=== PATIENT | male | born 1980 | race Caucasian/White ===

== ENCOUNTER 2025-02-06 20:09 | Inpatient (IN) | payer BC ==
--- NOTE | 2025-02-06 20:41 | ED ---
GI Bleed HPI - General Chief complaint: GI Bleed Stated complaint: GI Bleed Time Seen by Provider: 02/06/25 20:23 Source: patient, RN notes reviewed Mode of arrival: EMS Limitations: no limitations - History of Present Illness Initial comments: This is a 45-year-old male with history including hypertension and peptic ulcer hemorrhage 6 years ago presenting via EMS from [facility] for gastrointestinal bleeding x 4 days. Patient states he began having black tarry stool on Thursday that persisted throughout the weekend, stating stool was be ginning to return to normal before experiencing nausea and vomiting today, on his way to work, with brown/bloody emesis and subsequent dizziness, prompting visit to ER. Patient endorses receiving IV normal saline, Protonix and 1 unit of packed red blood cells prior to transfer to [facility] due to unavailability of property worker at initial ER location. Patient states he otherwise feels fine while lying in bed, denying chest pain, dyspnea, abdominal pain, current nausea. MD complaint: coffee ground emesis, melena Onset/Timin -: days(s) Quality: painless Context: history of GI bleed Associated Symptoms: nausea, vomiting Treatments Prior to Arrival: none - Related Data Allergies Allergy/AdvReac Type Severity Reaction Status Date / Time No Known Allergies Allergy Verified 02/06/25 20:15 Review of Systems ROS Statement: Those systems with pertinent positive or pertinent negative responses have been documented in the HPI. ROS Other: All systems not noted in ROS Statement are negative. Past Medical History Past Medical History: Hypertension Additional Past Medical History / Comment(s): bleeding stomach ulcer-7years ago Past Surgical History: Appendectomy, Orthopedic Surgery Smoking Status: Current every day smoker Past Alcohol Use History: Daily Past Drug Use History: None Reported General Exam General appearance: alert, in no apparent distress Head exam: Present: atraumatic, normocephalic, normal inspection Eye exam: Present: normal appearance, PERRL, EOMI. Absent: scleral icterus, conjunctival injection, periorbital swelling ENT exam: Present: normal exam, mucous membranes moist Neck exam: Present: normal inspection. Absent: tenderness, meningismus, lymphadenopathy Respiratory exam: Present: normal lung sounds bilaterally. Absent: respiratory distress, wheezes, rales, rhonchi, stridor, accessory muscle use, decreased breath sounds, prolonged expiratory Cardiovascular Exam: Present: regular rate, normal rhythm, normal heart sounds. Absent: systolic murmur, diastolic murmur, rubs, gallop, clicks GI/Abdominal exam: Present: soft, normal bowel sounds. Absent: distended, tenderness, guarding, rebound, rigid Extremities exam: Present: normal inspection, full ROM, normal capillary refill. Absent: tenderness, pedal edema, joint swelling, calf tenderness Back exam: Present: normal inspection Neurological exam: Present: alert, oriented X3, CN II-XII intact Psychiatric exam: Present: normal affect, normal mood Skin exam: Present: warm, dry, intact, normal color. Absent: rash Course Vital Signs 02/06/25 02/06/25 02/06/25 20:11 21:15 22:15 Temperature 98.4 F Pulse Rate 105 H 86 91 Respiratory 18 18 18 Rate Blood Pressure 99/73 107/68 101/73 O2 Sat by Pulse 97 98 98 Oximetry 02/07/25 02/07/25 02/07/25 01:16 01:26 01:46 Temperature 98.3 F 98.4 F 98.5 F Pulse Rate 93 86 89 Respiratory 16 18 18 Rate Blood Pressure 110/72 108/77 102/68 O2 Sat by Pulse 94 L 96 95 Oximetry Medical Decision Making - Medical Decision Making Was pt. sent in by a medical professional or institution (JUNIOR Andersen, STRATEGIC ACCOUNT DIRECTOR, urgent care, hospital, or shelter...) When possible be specific @ -Jerald Agarwal Did you speak to anyone other than the patient for history (EMS, parent, family, police, friend...)? What history was obtained from this source @ -No Did you review nursing and triage notes (agree or disagree)? Why? @ -I reviewed and agree with nursing and triage notes Were old charts reviewed (outside hosp., previous admission, EMS record, old EKG, old radiological studies, urgent care reports/EKG's, shelter records)? Report findings @ -No old charts were reviewed Differential Diagnosis (chest pain, altered mental status, abdominal pain women, abdominal pain men, vaginal bleeding, weakness, fever, dyspnea, syncope, headache, dizziness, GI bleed, back pain, seizure, CVA, palpatations, mental health, musculoskeletal)? @ -Differential GI Bleed: Esophageal varices, aortoenteric fistula, Faustina-Hanna, gastritis, peptic ulcer disease, diverticulosis, inflammatory bowel disease, hemorrhoids, fissure, colitis, malignancy, Meckel's diverticulum, this is not meant to be an all- inclusive list. EKG interpreted by me (3pts min.). @ -Not done X-rays interpreted by me (1pt min.). @ -None done CT interpreted by me (1pt min.). @ -None done U/S interpreted by me (1pt. min.). @ -None done What testing was considered but not performed or refused? (CT, X-rays, U/S, labs)? Why? @ -None What meds were considered but not given or refused? Why? @ -None Did you discuss the management of the patient with other professionals (professionals i.e. , PA, STRATEGIC ACCOUNT DIRECTOR, lab, RT, psych nurse, clinical social worker, rn anesthetist, teacher, medical officer psychiatry, counter caser)? Give summary @ -Spoke to Dr. Tang who advised admission and provide an additional unit of packed red blood cells. [facility] contacted for patient admission with consult to gastroenterology. Was smoking cessation discussed for >3mins.? @ -No Was critical care preformed (if so, how long)? @ -No Were there social determinants of health that impacted care today? How? (Homelessness, low income, unemployed, alcoholism, drug addiction, transportat ion, low edu. Level, literacy, decrease access to med. care, custodial, rehab)? @ -No Was there de-escalation of care discussed even if they declined (Discuss DNR or withdrawal of care, Hospice)? DNR status @ -No What co-morbidities impacted this encounter? (DM, HTN, Smoking, COPD, CAD, Cancer, CVA, ARF, Chemo, Hep., AIDS, mental health diagnosis, sleep apnea, morbid obesity)? @ -None Was patient admitted / discharged? Hospital course, mention meds given and route, prescriptions, significant lab abnormalities, going to OR and other pertinent info. @ -Lab work shows anemia with hemoglobin 7.0, hyponatremia 128, hyperkalemia 5.2 and BUN 42. Patient is O+ with negative antibody screen. Patient initially provided IV normal saline and IV Pepcid, having already received Protonix had prior ER. P.o. Lokelma given for hyperkalemia. Spoke to Dr. Ramesh who advised admission and provide additional units of packed red blood cells. Patient is a heavy smoker, requesting nicotine patch. Also states he takes 8 mg Suboxone daily and has not taken his dose today. Patient placed on maintenance IVF. [facility] contacted for patient admission with consult to gastroenterology. Patient would subsequently have a another bowel movement and commode with ongoing black tarry stool noted. Discussed patient with Dr. Acevedo. Undiagnosed new problem with uncertain prognosis? @ -No Drug Therapy requiring intensive monitoring for toxicity (Heparin, Nitro, Insulin, Cardizem)? @ -No Were any procedures done? @ -No Diagnosis/symptom? @ -Gastrointestinal hemorrhage Acute, or Chronic, or Acute on Chronic? @ -Acute Uncomplicated (without systemic symptoms) or Complicated (systemic symptoms)? @ -Complicated Side effects of treatment? @ -No Exacerbation, Progression, or Severe Exacerbation? @ -No Poses a threat to life or bodily function? How? (Chest pain, USA, NH, pneumonia, PE, COPD, DKA, ARF, appy, cholecystitis, CVA, Diverticulitis, Homicidal, Suicidal, threat to staff... and all critical care pts) @ -GI bleed, potential for exsanguination - Lab Data Result diagrams: 02/06/25 21:17 02/06/25 21:17 Lab Results 02/06/25 02/06/25 02/06/25 Range/Units 21:17 21:17 21:17 WBC 9.29 (4.50-10.00) 10*3/uL RBC 2.94 L (4.40-5.60) 10*6/uL Hgb 7.0 L (13.0-17.0) g/dL Hct 22.7 L (39.6-50.0) % MCV 77.2 L (80.0-97.0) fL MCH 23.8 L (27.0-32.0) pg MCHC 30.8 L (32.0-37.0) g/dL Plt Count 313 (140-440) 10*3/uL MPV 9.5 (9.5-12.2) fL Immature Gran % (Auto) 0.3 % Neutrophils % 84.7 % Lymphocytes % 10.2 % Monocytes % 4.7 % Eosinophils % 0.0 % Basophils % 0.1 % Immature Gran # 0.03 (0.00-0.04) 10*3/uL Neutrophils # 7.86 H (1.80-7.70) 10*3/uL Lymphocytes # 0.95 (0.90-5.00) 10*3/uL Monocytes # 0.44 (0.20-1.00) 10*3/uL Eosinophils # 0.00 L (0.04-0.35) 10*3/uL Basophils # 0.01 (0.00-0.10) 10*3/uL PT 11.5 (10.0-12.5) sec INR 1.1 (<1.2) APTT 20.6 L (22.0-30.0) sec Sodium 128 L (137-145) mmol/L Potassium 5.2 H (3.5-5.1) mmol/L Chloride 101 (98-107) mmol/L Carbon Dioxide 20 L (22-30) mmol/L Anion Gap 7 mmol/L BUN 42 H (9-20) mg/dL Creatinine 0.56 L (0.66-1.25) mg/dL Est GFR (CKD-EPI)AfAm >90 (>60 ml/min/1.73 sqM) Est GFR (CKD-EPI)NonAf >90 (>60 ml/min/1.73 sqM) Glucose 94 (74-99) mg/dL Plasma Lactic Acid Rico (0.7-2.0) mmol/L Calcium 8.5 (8.4-10.2) mg/dL Total Bilirubin 1.0 (0.2-1.3) mg/dL AST 27 (17-59) U/L ALT 12 (4-49) U/L Alkaline Phosphatase 21 L (38-126) U/L Total Protein 5.7 L (6.3-8.2) g/dL Albumin 3.3 L (3.5-5.0) g/dL Lipase 106 (23-300) U/L Blood Type Blood Type Confirm Blood Type Recheck Bld Type Recheck Status Antibody Screen Crossmatch Spec Expiration Date 02/06/25 02/06/25 02/06/25 Range/Units 21:17 21:17 22:04 WBC (4.50-10.00) 10*3/uL RBC (4.40-5.60) 10*6/uL Hgb (13.0-17.0) g/dL Hct (39.6-50.0) % MCV (80.0-97.0) fL MCH (27.0-32.0) pg MCHC (32.0-37.0) g/dL Plt Count (140-440) 10*3/uL MPV (9.5-12.2) fL Immature Gran % (Auto) % Neutrophils % % Lymphocytes % % Monocytes % % Eosinophils % % Basophils % % Immature Gran # (0.00-0.04) 10*3/uL Neutrophils # (1.80-7.70) 10*3/uL Lymphocytes # (0.90-5.00) 10*3/uL Monocytes # (0.20-1.00) 10*3/uL Eosinophils # (0.04-0.35) 10*3/uL Basophils # (0.00-0.10) 10*3/uL PT (10.0-12.5) sec INR (<1.2) APTT (22.0-30.0) sec Sodium (137-145) mmol/L Potassium (3.5-5.1) mmol/L Chloride (98-107) mmol/L Carbon Dioxide (22-30) mmol/L Anion Gap mmol/L BUN (9-20) mg/dL Creatinine (0.66-1.25) mg/dL Est GFR (CKD-EPI)AfAm (>60 ml/min/1.73 sqM) Est GFR (CKD-EPI)NonAf (>60 ml/min/1.73 sqM) Glucose (74-99) mg/dL Plasma Lactic Acid Rico 1.0 (0.7-2.0) mmol/L Calcium (8.4-10.2) mg/dL Total Bilirubin (0.2-1.3) mg/dL AST (17-59) U/L ALT (4-49) U/L Alkaline Phosphatase (38-126) U/L Total Protein (6.3-8.2) g/dL Albumin (3.5-5.0) g/dL Lipase (23-300) U/L Blood Type O Positive Blood Type Confirm O Positive Blood Type Recheck No Previous Record Bld Type Recheck Status CABO Indicated Antibody Screen NEGATIVE Crossmatch See Detail Spec Expiration Date 02/09/2025 - 2317 Disposition Clinical Impression: Gastrointestinal hemorrhage Disposition: ADMITTED IP TO THIS [facility] Condition: Fair Time of Disposition: 22:30 Decision Date: 02/06/25 Decision Time: 22:30
[2025-02-06 21:41] LABS: Basophils # (A) 0.01 10*3/uL (0.00-0.10); Basophils % (A) 0.1 %; HCT 22.7 % (39.6-50.0); Lymphocytes # (A) 0.95 10*3/uL (0.90-5.00); Lymphocytes % (A) 10.2 %; MCH 23.8 pg (27.0-32.0); MCHC 30.8 g/dL (32.0-37.0); MCV 77.2 fL (80.0-97.0); Mean Platelet Volume 9.5 fL (9.5-12.2); Monocytes # (A) 0.44 10*3/uL (0.20-1.00); Monocytes % (A) 4.7 %; Neutrophils # (A) 7.86 10*3/uL (1.80-7.70); Neutrophils % (A) 84.7 %; Platelet Count 313 10*3/uL (140-440); RBC 2.94 10*6/uL (4.40-5.60); RDW 20.5 % (11.5-14.5); WBC 9.29 10*3/uL (4.50-10.00)
[2025-02-06 21:47] LABS: ALT 12 U/L (4-49); African American GFR (CKD) >90 (>60 ml/min/1.73 sqM); Albumin 3.3 g/dL (3.5-5.0); Anion Gap 7 mmol/L; Blood Urea Nitrogen 42 mg/dL (9-20); Calcium 8.5 mg/dL (8.4-10.2); Carbon Dioxide 20 mmol/L (22-30); Chloride 101 mmol/L (98-107); Glucose 94 mg/dL (74-99); Lipase 106 U/L (23-300); Non-African American GFR(CKD) >90 (>60 ml/min/1.73 sqM); Sodium 128 mmol/L (137-145); Total Protein 5.7 g/dL (6.3-8.2)
[2025-02-06 21:48] LABS: AST 27 U/L (17-59); Alkaline Phosphatase 21 U/L (38-126); INR 1.1 (<1.2); Potassium 5.2 mmol/L (3.5-5.1); Prothrombin Time 11.5 sec (10.0-12.5)
[2025-02-06 21:50] LABS: Partial Thromboplastin Time 20.6 sec (22.0-30.0)
[2025-02-06] MEDS: FAMOTIDINE 20 MG/2 ML VIAL IV STA (22:10)
[2025-02-06] MEDS: SODIUM CHLORIDE 0.9% 1,000 ML IV STA (22:10)
[2025-02-06] MEDS: SODIUM ZIRCONIUM CYCLOSILICATE 10 GM PACKET PO ONE (22:45)
[2025-02-06] MEDS: NICOTINE 21MG/24HR PATCH TRANSDERM STA (22:47)
[2025-02-06] MEDS ORDERED: ACETAMINOPHEN TAB 325 MG TAB PO PRN (23:28)
[2025-02-06] MEDS ORDERED: NALOXONE 0.4 MG/ML 1 ML VIAL IV PRN (23:28)
[2025-02-06] MEDS ORDERED: ONDANSETRON 4 MG/2 ML VIAL IVP PRN (23:28)
[2025-02-06] MEDS ORDERED: MORPHINE SULFATE 4 MG/ML SYRINGE IV PRN (23:28)
--- NOTE | 2025-02-07 00:27 | P.HPIM ---
History of Present Illness H&P Date: 02/06/25 History of present illness; Patient is a 45-year-old male with history of GI bleed and stomach ulcer, alcohol use disorder, tobacco dependence who presents with coffee-ground emesis and melena. Patient is a transfer from [facility]. They lab significant for hemoglobin was 7.2, BUN 28. He was given 1 unit packed red blood cells and Protonix 40 mg IV twice. Also CT abdomen and pelvis with and without contrast completed with findings of no evidence for accumulation of contrast within the bowel lumen, no evidence of acute GI hemorrhage, nonobstructive bowel gas pattern without free air, no free fluid. Patient states Thursday he began having black stool with occasional red streaks. He also feels like he has been having more frequent bowel movements during this time. He has been having near syncope episodes during this time. Today, patient attests to dark brown emesis and began to become short of breath and dizzy. He admits to using Excedrin 2 to 4 pills daily. He denies iron or Pepto-Bismol use. He does state he had a similar occurrence 6 years ago for which she was admitted for 1 week, where EGD and colonoscopy were performed which were negative for acute bleeds. He also attests to a greater than 20-year history of alcohol use, drinking a sixpack of beer daily. Last drink was Thursday. He denies any withdrawal symptoms at this time. At this time patient continues to have diarrhea, however nausea and vomiting have subsided. He states he uses Suboxone for neck pain. He is denying fever, chills, abdominal pain. He has no other complaints at this time. Spoke with the ER physician, patient admission was accepted by internal medicine service for treatment. REVIEW OF SYSTEMS: Pertinent positives and negatives noted in HPI. PHYSICAL EXAMINATION: Vitals reviewed GENERAL: Resting comfortably in bed. EYES: PERRL, no scleral injection or icterus. No vision loss HENT: Normocephalic, atraumatic, hearing grossly intact, moist mucous membranes NECK: No tracheal deviation, full range of motion. CARDIOVASCULAR: S1 and S2 present. No murmurs, rubs, or gallops. PULMONARY: Chest is clear to auscultation, no wheezing, rhonchi, or crackles. ABDOMEN: Soft, nontender, nondistended. No palpable organomegaly. MUSCULOSKELETAL: No apparent joint swelling and deformities. EXTREMITIES: No apparent cyanosis, clubbing. No pedal edema. NEUROLOGICAL: Alert and oriented. Gross neurological examination with no apparent focal deficits. SKIN: No apparent rashes. ER FINDINGS: Labs significant for hemoglobin 7.0, sodium 128, potassium 5.2, bicarb 20, lactic acid 1.0, BUN 42, Cr 0.56, ALP 21, lipase 106 Assessment and Plan: In summary, patient is a 45-year-old male with history of GI bleed and stomach ulcer, alcohol use disorder, tobacco dependence who presents with coffee-ground emesis and melena. #Acute GI bleed, likely due to daily NSAID from peptic ulcer vs esophageal varices #Hematemesis #Melena #Alcohol use disorder -Hemdynamically stable at this time -Initial hemoglobin 7.0, lactic acid 1.0, BUN 42, Cr 0.56 -Give pRBC if Hgb <7 or 4g drop in 24h -Begin normal saline at 100 mL/h -Begin Zofran, IV Protonix 40 Mg twice daily -CBC q6hr Hold blood thinners -N.p.o. after midnight Plan for endoscopy tomorrow -GI consulted #Hypovolemic hyponatremia, likely due to GI fluid loss Initial sodium 128 IV fluids as above Monitor CMP #Hyperkalemia Initial potassium 5.2 Given Lokelma Monitor CMP #Tobacco use disorder Begin nicotine patch Resume Suboxone DVT ppx: SCDs Code status: Full code F: IV Normal saline 100 mL/hr E: Replete as needed N: n.p.o. after midnight A: Ambulatory Anticipated discharge place: Pending clinical course Anticipated discharge time: Pending clinical course Dictation was produced using [employer] dictation software. Please excuse any grammatical, word or spelling errors. The patient was seen examined on me on 02/06/25. The patient was discussed with the resident and I agreed with the findings and plan as dictated above Past Medical History Past Medical History: Hypertension Additional Past Medical History / Comment(s): bleeding stomach ulcer-7years ago Past Surgical History: Appendectomy, Orthopedic Surgery Smoking Status: Current every day smoker Past Alcohol Use History: Daily Past Drug Use History: None Reported Medications and Allergies Allergies Allergy/AdvReac Type Severity Reaction Status Date / Time No Known Allergies Allergy Verified 02/06/25 20:15 Physical Exam Vitals: Vital Signs Temp Pulse Resp BP Pulse Ox 02/06/25 22:15 91 18 101/73 98 02/06/25 21:15 86 18 107/68 98 02/06/25 20:11 98.4 F 105 H 18 99/73 97 Intake and Output 02/06/25 02/06/25 02/07/25 14:59 22:59 06:59 Other: Weight 79.379 kg Results CBC & Chem 7: 02/07/25 05:27 02/07/25 05:27 Labs: Abnormal Lab Results - Last 24 Hours (Table) 02/06/25 02/06/25 02/06/25 Range/Units 21:17 21:17 21:17 RBC 2.94 L (4.40-5.60) 10*6/uL Hgb 7.0 L (13.0-17.0) g/dL Hct 22.7 L (39.6-50.0) % MCV 77.2 L (80.0-97.0) fL MCH 23.8 L (27.0-32.0) pg MCHC 30.8 L (32.0-37.0) g/dL Neutrophils # 7.86 H (1.80-7.70) 10*3/uL Eosinophils # 0.00 L (0.04-0.35) 10*3/uL APTT 20.6 L (22.0-30.0) sec Sodium 128 L (137-145) mmol/L Potassium 5.2 H (3.5-5.1) mmol/L Carbon Dioxide 20 L (22-30) mmol/L BUN 42 H (9-20) mg/dL Creatinine 0.56 L (0.66-1.25) mg/dL Alkaline Phosphatase 21 L (38-126) U/L Total Protein 5.7 L (6.3-8.2) g/dL Albumin 3.3 L (3.5-5.0) g/dL
[2025-02-07] MEDS: BUPRENORPHINE-NALOX 8-2 MG TAB 1 EACH TAB.SUBL SL SCH (01:04)
[2025-02-07] MEDS: PANTOPRAZOLE 40 MG/10 ML VIAL IVP SCH (01:05)
[2025-02-07] MEDS: SODIUM CHLORIDE 0.9% 1,000 ML IV SCH (01:05)
[2025-02-07 05:47] LABS: Basophils # (A) 0.02 10*3/uL (0.00-0.10); Basophils % (A) 0.3 %; Eosinophils # (A) 0.02 10*3/uL (0.04-0.35); Eosinophils % (A) 0.3 %; HCT 23.7 % (39.6-50.0); HGB 7.4 g/dL (13.0-17.0); Lymphocytes # (A) 2.21 10*3/uL (0.90-5.00); Lymphocytes % (A) 29.8 %; MCH 25.1 pg (27.0-32.0); MCHC 31.2 g/dL (32.0-37.0); MCV 80.3 fL (80.0-97.0); Monocytes # (A) 0.88 10*3/uL (0.20-1.00); Monocytes % (A) 11.9 %; Neutrophils # (A) 4.27 10*3/uL (1.80-7.70); Neutrophils % (A) 57.4 %; Platelet Count 263 10*3/uL (140-440); RBC 2.95 10*6/uL (4.40-5.60); RDW 20.5 % (11.5-14.5); WBC 7.42 10*3/uL (4.50-10.00)
[2025-02-07 06:03] LABS: ALT 11 U/L (4-49); AST 18 U/L (17-59); African American GFR (CKD) >90 (>60 ml/min/1.73 sqM); Albumin 2.9 g/dL (3.5-5.0); Alkaline Phosphatase 31 U/L (38-126); Anion Gap 3 mmol/L; Blood Urea Nitrogen 32 mg/dL (9-20); Calcium 8.5 mg/dL (8.4-10.2); Carbon Dioxide 24 mmol/L (22-30); Chloride 105 mmol/L (98-107); Glucose 93 mg/dL (74-99); Non-African American GFR(CKD) >90 (>60 ml/min/1.73 sqM); Potassium 4.2 mmol/L (3.5-5.1); Sodium 132 mmol/L (137-145); Total Bilirubin 0.8 mg/dL (0.2-1.3); Total Protein 5.3 g/dL (6.3-8.2)
--- NOTE | 2025-02-07 09:41 | P.PN ---
Subjective Progress Note Date: 02/07/25 Hospital Course: Patient is a 45-year-old male with history of GI bleed and stomach ulcer, alcohol use disorder, tobacco dependence who presents with coffee-ground emesis and melena. Patient is a transfer from [facility]. They lab significant for hemoglobin was 7.2, BUN 28. He was given 1 unit packed red blood cells and Protonix 40 mg IV twice. Also CT abdomen and pelvis with and without contrast completed with findings of no evidence for accumulation of contrast within the bowel lumen, no evidence of acute GI hemorrhage, nonobstructive bowel gas pattern without free air, no free fluid. Patient states Thursday he began having black stool with occasional red streaks. He also feels like he has been having more frequent bowel movements during this time. He has been having near syncope episodes during this time. Today, patient attests to dark brown emesis and began to become short of breath and dizzy. He admits to using Excedrin 2 to 4 pills daily. He denies iron or Pepto-Bismol use. He does state he had a similar occurrence 6 years ago for which she was admitted for 1 week, where EGD and colonoscopy were performed which were negative for acute bleeds. He also attests to a greater than 20-year history of alcohol use, drinking a sixpack of beer daily. Last drink was Thursday. He denies any withdrawal symptoms at this time. At this time patient continues to have diarrhea, however nausea and vomiting have subsided. He states he uses Suboxone for neck pain. He is denying fever, chills, abdominal pain. He has no other complaints at this time. Subjective: Patient seen and examined at bedside. Patient states 1 episode of dark/black stool last night. Denies any lightheadedness, dizziness. Pertinent positives and negatives as discussed above, a complete review of systems was performed and all other systems are negative. Vitals: Signs Reviewed Physical Exam: General: nontoxic, no distress, appears at stated age Derm: warm, dry, intact Head: atraumatic, normocephalic, symmetric Eyes: EOMI, anicteric sclera Mouth: no lip lesion, mucus membranes moist Cardiovascular: S1 S2 reg, no murmur, rubs, or gallops Lungs: CTA bilateral, no rhonchi, no rales, no accessory muscle use Abdominal: soft, non-tender to palpataion, no appreciable organomegaly Extremities: no gross muscle atrophy, no edema, no contractures Neuro: Alert, Oriented, CNII-XII grossly intact, gait normal Psych: well appearing, appropriate affect Data Received Today: Pertinent Labs: Hgb 7.4, MCV 80.3, sodium 132, BUN 32, creatinine 0.61, AST 18, ALT 11, alk phos 31, total protein 5.3, albumin 2.9 Imaging: N/A Assessment and Plan: Patient is a 45-year-old male with history of GI bleed and stomach ulcer, alcohol use disorder, tobacco dependence who presents with coffee-ground emesis and melena. #Acute GI bleed, likely secondary to daily NSAID from peptic ulcer vs esophageal varices #Hematemesis #Melena -Hemdynamically stable at this time -Initial hemoglobin 7.0, lactic acid 1.0, BUN 42, Cr 0.56 -Give pRBC if Hgb < 7 or 4g/dL drop in 24h -Continue normal saline at 100 mL/h -Continue Zofran, IV Protonix 40 Mg twice daily -CBC q6hr Hold blood thinners/NSAIDs -NPO since midnight -Discussed with GI, plan for endoscopy today #Hypovolemic hyponatremia, likely due to GI fluid loss, improving Initial sodium 128 IV fluids as above Monitor CMP #Alcohol use disorder No signs of withdrawal Thiamine 100 mg p.o. daily Folic acid 1 mg p.o. daily Multivitamin daily Chronic: #. Tobacco use disorder: Nicotine patch daily #. Opioid use disorder: Suboxone 8-2 mg 1 each SL HS Resolved: Hyperkalemia DVT ppx: SCDs Code status: Full code F: IV Normal saline 100 mL/hr E: Replete as needed N: NPO after midnight A: Ambulatory Anticipated discharge place: Pending clinical course Anticipated discharge time: Pending clinical course Jeff Fontaine MD PGY-1 IM Dictation was produced using [employer] dictation software. please excuse any grammatical, word or spelling errors. I saw and evaluated the patient during the sharma and critical portions of this encounter, and discussed the case in detail with the resident author of this note, I agree with the Assessment and Plan, and my changes, if any, are highlighted in blue. Objective - Vital Signs Vital signs: Vital Signs Temp 98.5 F 05/06/25 04:09 Pulse 84 02/07/25 06:00 Resp 18 02/07/25 06:00 BP 110/86 02/07/25 06:00 Pulse Ox 98 02/07/25 06:00 FiO2 Intake & Output 02/06/25 02/06/25 02/07/25 06:59 18:59 06:59 Intake Total 310 Balance 310 Weight 79.379 kg Intake: Blood Product 310 Rc As-1 Unit 310 [id number] - Labs CBC & Chem 7: 02/07/25 05:27 02/07/25 05:27 Labs: Abnormal Lab Results - Last 24 Hours (Table) 02/06/25 02/06/25 02/06/25 Range/Units 21:17 21:17 21:17 RBC 2.94 L (4.40-5.60) 10*6/uL Hgb 7.0 L (13.0-17.0) g/dL Hct 22.7 L (39.6-50.0) % MCV 77.2 L (80.0-97.0) fL MCH 23.8 L (27.0-32.0) pg MCHC 30.8 L (32.0-37.0) g/dL MPV (9.5-12.2) fL Neutrophils # 7.86 H (1.80-7.70) 10*3/uL Eosinophils # 0.00 L (0.04-0.35) 10*3/uL APTT 20.6 L (22.0-30.0) sec Sodium 128 L (137-145) mmol/L Potassium 5.2 H (3.5-5.1) mmol/L Carbon Dioxide 20 L (22-30) mmol/L BUN 42 H (9-20) mg/dL Creatinine 0.56 L (0.66-1.25) mg/dL Alkaline Phosphatase 21 L (38-126) U/L Total Protein 5.7 L (6.3-8.2) g/dL Albumin 3.3 L (3.5-5.0) g/dL Crossmatch 02/06/25 02/07/25 02/07/25 Range/Units 21:17 05: 05: RBC 2.95 L (4.40-5.60) 10*6/uL Hgb 7.4 L (13.0-17.0) g/dL Hct 23.7 L (39.6-50.0) % MCV (80.0-97.0) fL MCH 25.1 L (27.0-32.0) pg MCHC 31.2 L (32.0-37.0) g/dL MPV 9.0 L (9.5-12.2) fL Neutrophils # (1.80-7.70) 10*3/uL Eosinophils # 0.02 L (0.04-0.35) 10*3/uL APTT (22.0-30.0) sec Sodium 132 L (137-145) mmol/L Potassium (3.5-5.1) mmol/L Carbon Dioxide (22-30) mmol/L BUN 32 H (9-20) mg/dL Creatinine 0.61 L (0.66-1.25) mg/dL Alkaline Phosphatase 31 L (38-126) U/L Total Protein 5.3 L (6.3-8.2) g/dL Albumin 2.9 L (3.5-5.0) g/dL Crossmatch See Detail
[2025-02-07] MEDS: THIAMINE 100 MG TAB PO SCH (10:26)
[2025-02-07] MEDS: MULTIVITAMINS, THERA 1 EACH TAB PO SCH (10:26)
[2025-02-07] MEDS: FOLIC ACID 1 MG TAB PO SCH (10:26)
--- NOTE | 2025-02-07 10:45 | P.CONS ---
History of Present Illness - Reason for Consult Consult date: 02/07/25 GI bleed Requesting physician: Pa Chan - Chief Complaint Coffee-ground emesis - History of Present Illness This a pleasant 45-year-old male with a past medical history of alcohol dependence who drinks 6-10 beers a day for multiple years, upper GI bleed with history of ulcer about 6 years ago, and tobacco use who presented to the emergency department as a transfer from [facility] for complaints of coffee-ground emesis. Patient states that Thursday he had emesis that was bright red it was followed by coffee-ground emesis. He went to the hospital for further evaluation. He also states that he has been having black stool since Thursday. Has a history of ulcer about 6 years ago had upper endoscopy at an outside facility. He denies any known history of liver disease. Denies any known history of esophageal varices. He was noted to be anemic at the outside facility. He had a CT of the abdomen pelvis without any acute findings. He denies any associated abdominal pain. He has had no further vomiting since he is come here. He is currently NPO. He denies any previous colonoscopy. On admission hemoglobin was 7.0 he was given 1 unit of blood. Today's labs WBC 7.4 hemoglobin 7.4 hematocrit 23 platelet count 263,000 INR was 1.1 sodium 132 potassium 4.2 BUN 32 creatinine 0.6 total bilirubin 0.8 AST 18 ALT 11 alkaline phosphatase 31 He denies being on any anticoagulation, he does use Excedrin and NSAIDs. He takes at least 2 Excedrin daily. Reports taking Prilosec at home. Review of Systems REVIEW OF SYSTEMS: CARDIOPULMONARY: No chest pain or shortness of breath. Gastrointestinal: No abdominal pain. Reported 1 episode of hematemesis, couple episodes of coffee-ground emesis. Black stool. GENITOURINARY: No dysuria or hematuria. MUSCULOSKELETAL: Reports normal range of motion. SKIN: No rashes. No jaundice. ENDOCRINE: No chills, fevers. No excessive weight gain or loss. No polydipsia or polyuria. PSYCHIATRIC: Unremarkable. NEUROLOGY: No change in mental status. Denies dizziness, headache. ENT: Vision unremarkable. CONSTITUTIONAL: No recent weight loss. No fever, chills, night sweats. Past Medical History Past Medical History: Hypertension Additional Past Medical History / Comment(s): bleeding stomach ulcer-7years ago Past Surgical History: Appendectomy, Orthopedic Surgery Smoking Status: Current every day smoker Past Alcohol Use History: Daily Past Drug Use History: None Reported Medications and Allergies Home Medications Medication Instructions Recorded Confirmed Type Buprenorphine HCl/Naloxone HCl 0.5 film SL BID 02/07/25 02/07/25 History [Suboxone 8 mg-2 mg Sl Film] Omeprazole [PriLOSEC] 20 mg PO DAILY 02/07/25 02/07/25 History amLODIPine [Norvasc] 10 mg PO DAILY 02/07/25 02/07/25 History Allergies Allergy/AdvReac Type Severity Reaction Status Date / Time No Known Allergies Allergy Verified 02/07/25 08:11 Physical Exam Vitals: Vital Signs Temp Pulse Resp BP Pulse Ox 02/07/25 08:00 98.4 F 82 16 112/76 95 02/07/25 06:00 84 18 110/86 98 02/07/25 04:09 98.5 F 84 18 107/88 95 02/07/25 03:00 80 18 109/69 95 02/07/25 01:46 98.5 F 89 18 102/68 95 02/07/25 01:26 98.4 F 86 18 108/77 96 02/07/25 01:16 98.3 F 93 16 110/72 94 L 02/06/25 22:15 91 18 101/73 98 02/06/25 21:15 86 18 107/68 98 02/06/25 20:11 98.4 F 105 H 18 99/73 97 Intake and Output 02/06/25 02/07/25 02/07/25 22:59 06:59 14:59 Intake Total 310 Balance 310 Intake: Blood Product 310 Rc As-1 Unit 310 [id number] Other: Weight 79.379 kg General appearance: The patient is alert, oriented, appears in no acute distress. HET: Head is normocephalic and atraumatic. Conjunctiva pink. Sclera anicteric. Neck: Supple without lymphadenopathy. Trachea midline. Heart: Regular. Lungs: Equal expansion, normal respiratory effort. Abdomen: Soft, nontender, nondistended. Skin: No rashes. No jaundice. Extremities: Normal skin color and turgor. No pedal edema. Neurological: No focal deficits. Alert and oriented x3. Results CBC & Chem 7: 02/07/25 05:27 02/07/25 05: Labs: Abnormal Lab Results - Last 24 Hours (Table) 02/06/25 02/06/25 02/06/25 Range/Units 21:17 21:17 21:17 RBC 2.94 L (4.40-5.60) 10*6/uL Hgb 7.0 L (13.0-17.0) g/dL Hct 22.7 L (39.6-50.0) % MCV 77.2 L (80.0-97.0) fL MCH 23.8 L (27.0-32.0) pg MCHC 30.8 L (32.0-37.0) g/dL MPV (9.5-12.2) fL Neutrophils # 7.86 H (1.80-7.70) 10*3/uL Eosinophils # 0.00 L (0.04-0.35) 10*3/uL APTT 20.6 L (22.0-30.0) sec Sodium 128 L (137-145) mmol/L Potassium 5.2 H (3.5-5.1) mmol/L Carbon Dioxide 20 L (22-30) mmol/L BUN 42 H (9-20) mg/dL Creatinine 0.56 L (0.66-1.25) mg/dL Alkaline Phosphatase 21 L (38-126) U/L Total Protein 5.7 L (6.3-8.2) g/dL Albumin 3.3 L (3.5-5.0) g/dL Crossmatch 02/06/25 02/07/25 02/07/25 Range/Units 21:17 05:27 05:27 RBC 2.95 L (4.40-5.60) 10*6/uL Hgb 7.4 L (13.0-17.0) g/dL Hct 23.7 L (39.6-50.0) % MCV (80.0-97.0) fL MCH 25.1 L (27.0-32.0) pg MCHC 31.2 L (32.0-37.0) g/dL MPV 9.0 L (9.5-12.2) fL Neutrophils # (1.80-7.70) 10*3/uL Eosinophils # 0.02 L (0.04-0.35) 10*3/uL APTT (22.0-30.0) sec Sodium 132 L (137-145) mmol/L Potassium (3.5-5.1) mmol/L Carbon Dioxide (22-30) mmol/L BUN 32 H (9-20) mg/dL Creatinine 0.61 L (0.66-1.25) mg/dL Alkaline Phosphatase 31 L (38-126) U/L Total Protein 5.3 L (6.3-8.2) g/dL Albumin 2.9 L (3.5-5.0) g/dL Crossmatch See Detail Assessment and Plan (1) Gastrointestinal bleed Narrative/Plan: 45-year-old male with daily alcohol use disorder was transferred for concerns for upper GI bleed with hematemesis as well as coffee-ground emesis and melena. Patient reports history of an ulcer and previous upper GI bleed about 6 years ago. Patient was noted to have microcytic anemia on admission. Was given 1 unit of blood. Has elevated BUN which can also be seen in setting of upper GI bleed. Will plan for upper endoscopy need to consider possible gastritis, esophagitis, peptic ulcer disease and esophageal varices in setting of multiple years of alcohol abuse. Current Visit: Yes Status: Acute Code(s): K92.2 - GASTROINTESTINAL HEM ORRHAGE, UNSPECIFIED SNOMED Code(s): 89152353 (2) Coffee ground emesis Current Visit: Yes Status: Acute Code(s): K92.0 - HEMATEMESIS SNOMED Code(s): 63545729 (3) ETOH abuse Current Visit: Yes Status: Acute Code(s): F10.10 - ALCOHOL ABUSE, UNCOMPLICATED SNOMED Code(s): 94169113 (4) Melena Current Visit: Yes Status: Acute Code(s): K92.1 - MELENA SNOMED Code(s): 7494465 Plan: 1. Continue symptomatic and supportive care 2. Avoid NSAIDs 3. Protonix 40 mg twice daily 5. Daily CBC, transfuse for hemoglobin less than 7 6. Keep n.p.o. 7. Recommend alcohol abstinence, this was discussed with the patient. 8. Will plan for upper endoscopy today with further recommendations 9. Rest of medical management per primary medical team Thank you for this consultation, we will continue to follow. Dr. Last Tang I agree with the dictator's note, documented as a scribe by Clau Maki.
[2025-02-07 10:49] LABS: Basophils # (A) 0.02 10*3/uL (0.00-0.10); Basophils % (A) 0.3 %; Eosinophils # (A) 0.04 10*3/uL (0.04-0.35); Eosinophils % (A) 0.5 %; HCT 21.9 % (39.6-50.0); Lymphocytes # (A) 1.32 10*3/uL (0.90-5.00); MCH 25.1 pg (27.0-32.0); MCHC 31.5 g/dL (32.0-37.0); MCV 79.6 fL (80.0-97.0); Mean Platelet Volume 8.8 fL (9.5-12.2); Monocytes # (A) 0.94 10*3/uL (0.20-1.00); Monocytes % (A) 12.8 %; Neutrophils # (A) 4.99 10*3/uL (1.80-7.70); Neutrophils % (A) 67.9 %; Platelet Count 240 10*3/uL (140-440); RBC 2.75 10*6/uL (4.40-5.60); RDW 19.9 % (11.5-14.5); WBC 7.35 10*3/uL (4.50-10.00)
[2025-02-07 10:53] LABS: HGB 6.9 g/dL (13.0-17.0)
[2025-02-07] MEDS: IV FLUID CONTINUATION 1,000 ML IV ONE (12:22)
[2025-02-07] MEDS ORDERED: PROPOFOL 10 MG/ML 20 ML VIAL IV ONE (12:34)
[2025-02-07] MEDS ORDERED: LIDOCAINE 1% INJ 10MG/ML (20 ML MDV) ONE (12:34)
--- NOTE | 2025-02-07 12:49 | P.PCN ---
Date of Procedure: 02/07/25 Procedure(s) Performed: BRIEF HISTORY: Patient is a 45-year-old, pleasant, white male admitted to hospital with acute GI bleed. He presented to [facility] with black tarry stools for the last 2 days duration and 1 episode of hematemesis. He was transferred to [facility] for his hospital last night and so far received in the PR[facility] transfusion. Scheduled for an upper endoscopy. PROCEDURE PERFORMED: Esophagogastroduodenoscopy with Endo Clip placement and biopsy PREOPERATIVE DIAGNOSIS: Acute upper GI bleed. IV sedation per anesthesia. PROCEDURE: After informed consent was obtained, the patient was brought into the endoscopy unit. IV sedation was administered by Anesthesia under continuous monitoring. Initially the Olympus GIF-140 video endoscope was inserted into the mouth. Esophagus intubated without any difficulty. It was gradually advanced into the stomach and duodenum and carefully examined. There was fresh blood noted in the stomach and the duodenum. Interrogation was performed. The second part of the duodenum appeared normal. In the duodenal bulb along the duodenal sweep there was fresh blood identified and after irrigation there was a small 1 cm linear ulceration with active oozing identified. An Endo Clip was placed and good hemostasis was achieved. The scope at this time was withdrawn to the stomach, adequately insufflated with air, and upon careful examination, mucosa of the antrum, had a 5 mm nonbleeding ulcer identified which was biopsied. Mucosa of the body, cardia and the fundus appeared normal. The scope was then withdrawn into the esophagus. Small hiatal hernia noted. The GE junction was located at 39 cm from the incisors. The esophagus appeared normal. There were no erosions or ulcerations seen and the patient tolerated the procedure well. IMPRESSION: 1. 1 cm linear duodenal ulcer along the duodenal sweep with active bleeding status post Endo Clip placement with good hemostasis. 2. 5 mm nonbleeding antral ulcer 3. Small hiatal. RECOMMENDATIONS: The findings of this examination were discussed with the patient. Continue with Protonix 40 mg twice daily. Start clear liquids. Transfuse as needed. Monitor hemoglobin daily.. Avoid NSAIDs.
[2025-02-08 07:12] LABS: HCT 23.5 % (39.6-50.0); HGB 7.6 g/dL (13.0-17.0); MCHC 32.3 g/dL (32.0-37.0); MCV 80.5 fL (80.0-97.0); Mean Platelet Volume 8.9 fL (9.5-12.2); Platelet Count 266 10*3/uL (140-440); RBC 2.92 10*6/uL (4.40-5.60); RDW 19.2 % (11.5-14.5); WBC 7.38 10*3/uL (4.50-10.00)
[2025-02-08 07:29] LABS: African American GFR (CKD) >90 (>60 ml/min/1.73 sqM); Anion Gap 3 mmol/L; Blood Urea Nitrogen 13 mg/dL (9-20); Calcium 8.5 mg/dL (8.4-10.2); Carbon Dioxide 26 mmol/L (22-30); Chloride 101 mmol/L (98-107); Glucose 89 mg/dL (74-99); Non-African American GFR(CKD) >90 (>60 ml/min/1.73 sqM); Sodium 130 mmol/L (137-145)
[2025-02-08] MEDS: NICOTINE 21MG/24HR PATCH TRANSDERM SCH (08:26)
--- NOTE | 2025-02-08 10:43 | P.PN ---
Subjective Progress Note Date: 02/08/25 Hospital Course: Patient is a 45-year-old male with history of GI bleed and stomach ulcer, alcohol use disorder, tobacco dependence who presents with coffee-ground emesis and melena. Patient is a transfer from [facility]. They lab significant for hemoglobin was 7.2, BUN 28. He was given 1 unit packed red blood cells and Protonix 40 mg IV twice. Also CT abdomen and pelvis with and without contrast completed with findings of no evidence for accumulation of contrast within the bowel lumen, no evidence of acute GI hemorrhage, nonobstructive bowel gas pattern without free air, no free fluid. Patient states Thursday he began having black stool with occasional red streaks. He also feels like he has been having more frequent bowel movements during this time. He has been having near syncope episodes during this time. Today, patient attests to dark brown emesis and began to become short of breath and dizzy. He admits to using Excedrin 2 to 4 pills daily. He denies iron or Pepto-Bismol use. He does state he had a similar occurrence 6 years ago for which she was admitted for 1 week, where EGD and colonoscopy were performed which were negative for acute bleeds. He also attests to a greater than 20-year history of alcohol use, drinking a sixpack of beer daily. Last drink was Thursday. He denies any withdrawal symptoms at this time. At this time patient continues to have diarrhea, however nausea and vomiting have subsided. He states he uses Suboxone for neck pain. He is denying fever, chills, abdominal pain. He has no other complaints at this time. Subjective: Patient seen and examined at bedside. No events overnight. Pertinent positives and negatives as discussed above, a complete review of systems was performed and all other systems are negative. Vitals: Signs Reviewed Physical Exam: General: nontoxic, no distress, appears at stated age Derm: warm, dry, intact Head: atraumatic, normocephalic, symmetric Eyes: EOMI, anicteric sclera Mouth: no lip lesion, mucus membranes moist Cardiovascular: S1 S2 reg, no murmur, rubs, or gallops Lungs: CTA bilateral, no rhonchi, no rales, no accessory muscle use Abdominal: soft, non-tender to palpataion, no appreciable organomegaly Extremities: no gross muscle atrophy, no edema, no contractures Neuro: Alert, Oriented, CNII-XII grossly intact, gait normal Psych: well appearing, appropriate affect Data Received Today: Pertinent Labs: Hgb 6.9 => 7.6, MCV 80.5, sodium 130 Imaging: N/A Assessment and Plan: Patient is a 45-year-old male with history of GI bleed and stomach ulcer, alcohol use disorder, tobacco dependence who presents with acute GI bleed secondary to duodenal ulcer. #Acute GI bleed, secondary to bleeding duodenal ulcer #Hematemesis #Melena Status post EGD per procedure note, patient had 1 cm linear duodenal ulcer with active bleeding status s/p Endo Clip, 5 mm nonbleeding antral ulcer Patient with history of chronic NSAID use Hemdynamically stable at this time Initial hemoglobin 7.0, lactic acid 1.0, BUN 42, Cr 0.56 Give pRBC if Hgb < 7 or 4g/dL drop in 24h Continue normal saline at 100 mL/h Continue Zofran, IV Protonix 40 Mg twice daily S/p 2 units of PRBC Hold blood thinners/NSAIDs Clear liquid diet advanced to full liquid diet GI following, will advance diet to full liquid see if tolerating #Hypovolemic hyponatremia, likely due to GI fluid loss, improving Initial sodium 128 IV fluids as above Repeat BMP this afternoon #Alcohol use disorder Last drink was 5 days ago No signs of withdrawal Thiamine 100 mg p.o. daily Folic acid 1 mg p.o. daily Multivitamin daily Chronic: #. Tobacco use disorder: Nicotine patch daily #. Opioid use disorder: Suboxone 8-2 mg 1 each SL HS Resolved: Hyperkalemia DVT ppx: SCDs Code status: Full code F: IV Normal saline 100 mL/hr E: Replete as needed N: Full liquid diet A: Ambulatory Anticipated discharge place: Home Anticipated discharge time: Likely this afternoon or tomorrow Jeff Fontaine MD PGY-1 IM Dictation was produced using [employer] dictation software. please excuse any grammatical, word or spelling errors. I have seen and evaluated the patient today. Discussed with the resident and agree with the residents finding and plan as documented in the resident's note. Changes highlighted in blue font. Objective - Vital Signs Vital signs: Vital Signs Temp 97.8 F 02/08/25 04:00 Pulse 70 02/08/25 04:00 Resp 16 02/08/25 04:00 BP 115/72 02/08/25 04:00 Pulse Ox 93 L 02/08/25 04:00 FiO2 Intake & Output 02/07/25 02/08/25 02/08/25 18:59 06:59 18:59 Intake Total 1132 Balance 1132 Weight 79.379 kg 79.4 kg Intake: IV 600 Oral 222 Blood Product 310 Rc As-1 Unit 310 [id number] Other: Voiding Method Toilet Toilet # Voids 1 1 # Bowel Movements 0 - Labs CBC & Chem 7: 02/08/25 06:44 02/08/25 11:29 Labs: Abnormal Lab Results - Last 24 Hours (Table) 02/06/25 02/07/25 02/08/25 Range/Units 21:17 10:28 06:44 RBC 2.75 L (4.40-5.60) 10*6/uL Hgb 6.9 L* (13.0-17.0) g/dL Hct 21.9 L (39.6-50.0) % MCV 79.6 L (80.0-97.0) fL MCH 25.1 L (27.0-32.0) pg MCHC 31.5 L (32.0-37.0) g/dL MPV 8.8 L (9.5-12.2) fL Sodium 130 L (137-145) mmol/L Creatinine 0.63 L (0.66-1.25) mg/dL Crossmatch See Detail 02/08/25 Range/Units 06:44 RBC 2.92 L (4.40-5.60) 10*6/uL Hgb 7.6 L (13.0-17.0) g/dL Hct 23.5 L (39.6-50.0) % MCV (80.0-97.0) fL MCH 26.0 L (27.0-32.0) pg MCHC (32.0-37.0) g/dL MPV 8.9 L (9.5-12.2) fL Sodium (137-145) mmol/L Creatinine (0.66-1.25) mg/dL Crossmatch
--- NOTE | 2025-02-08 11:17 | P.PN ---
Subjective Progress Note Date: 02/08/25 Principal diagnosis: Upper GI bleed, duodenal ulcer This a pleasant 45-year-old male with a past medical history of alcohol dependence who drinks 6-10 beers a day for multiple years, upper GI bleed with history of ulcer about 6 years ago, and tobacco use who presented to the [facility] department as a transfer from [facility] for complaints of coffee-ground emesis. Patient states that Thursday he had emesis that was bright red it was followed by coffee-ground emesis. He went to the hospital for further evaluation. He also states that he has been having black stool since Thursday. Has a history of ulcer about 6 years ago had upper endoscopy at an outside facility. He denies any known history of liver disease. Denies any known history of esophageal varices. He was noted to be anemic at the outside facility. He had a CT of the abdomen pelvis without any acute findings. He denies any associated abdominal pain. He has had no further vomiting since he is come here. He is currently NPO. He denies any previous colonoscopy. On admission hemoglobin was 7.0 he was given 1 unit of blood. Today's labs WBC 7.4 hemoglobin 7.4 hematocrit 23 platelet count 263,000 INR was 1.1 sodium 132 potassium 4.2 BUN 32 creatinine 0.6 total bilirubin 0.8 AST 18 ALT 11 alkaline phosphatase 31 He denies being on any anticoagulation, he does use Excedrin and NSAIDs. He takes at least 2 Excedrin daily. Reports taking Prilosec at home. 02/08/2025 Patient is seen and examined today as a follow-up. Yesterday he underwent upper endoscopy with findings of 1 cm linear duodenal ulcer along the duodenal sweep with active bleeding status post Endo Clip placement with good hemostasis. 5 mm nonbleeding antral ulcer and small hiatal hernia. Patient states he has no abdominal pain nausea or vomiting. Denies any recent bowel movements, no rectal bleeding. He has had no further hematemesis or coffee-ground emesis. Tolerating clear liquid diet. Hemoglobin is 7.6. He is status post 2 units of blood during this admission. Objective - Vital Signs Vital signs: Vital Signs Temp 97.9 F 02/08/25 08:00 Pulse 79 02/08/25 08:00 Resp 18 02/08/25 08:00 BP 127/80 02/08/25 08:00 Pulse Ox 95 02/08/25 08:00 FiO2 Intake & Output 02/07/25 02/08/25 02/08/25 18:59 06:59 18:59 Intake Total 1132 Balance 1132 Weight 79.379 kg 79.4 kg Intake: IV 600 Oral 222 Blood Product 310 Rc As-1 Unit 310 [id number] Other: Voiding Method Toilet Toilet # Voids 1 1 # Bowel Movements 0 - Exam General appearance: The patient is alert, oriented, appears in no acute distress. HET: Head is normocephalic and atraumatic. Conjunctiva pink. Sclera anicteric. Neck: Supple without lymphadenopathy. Abdomen: Soft, nontender, nondistended. Extremities: Normal skin color and turgor. No pedal edema Skin: No rashes, no jaundice Neurological: No focal deficits. Alert and oriented. - Labs CBC & Chem 7: 02/08/25 06:44 02/08/25 06:44 Labs: Abnormal Lab Results - Last 24 Hours (Table) 02/06/25 02/08/25 02/08/25 Range/Units 21:17 06:44 06:44 RBC 2.92 L (4.40-5.60) 10*6/uL Hgb 7.6 L (13.0-17.0) g/dL Hct 23.5 L (39.6-50.0) % MCH 26.0 L (27.0-32.0) pg MPV 8.9 L (9.5-12.2) fL Sodium 130 L (137-145) mmol/L Creatinine 0.63 L (0.66-1.25) mg/dL Crossmatch See Detail Assessment and Plan (1) Gastrointestinal bleed Narrative/Plan: 45-year-old male with daily alcohol use disorder was transferred for concerns for upper GI bleed with hematemesis as well as coffee-ground emesis and melena. Patient reports history of an ulcer and previous upper GI bleed about 6 years ago. Patient was noted to have microcytic anemia on admission. Was given 1 unit of blood. Has elevated BUN which can also be seen in setting of upper GI bleed. Patient had undergone upper endoscopy with findings of duodenal ulcer with active bleeding status post Endo Clip with good hemostasis as well as a small nonbleeding antral ulcer. Recommendation for alcohol abstinence, avoid NSAIDs and recommend PPI for next 3 months. Patient does not tolerate Protonix secondary to migraines. Recommend omeprazole 40 mg twice daily. Patient will need outpatient follow-up with repeat upper endoscopy to evaluate healing of ulcer. Patient can be seen in [place]. Current Visit: Yes Status: Acute Code(s): K92.2 - GASTROINTESTINAL HEMORRHAGE, UNSPECIFIED SNOMED Code(s): 75952024 (2) Coffee ground emesis Current Visit: Yes Status: Acute Code(s): K92.0 - HEMATEMESIS SNOMED Code(s): 46818438 (3) ETOH abuse Current Visit: Yes Status: Acute Code(s): F10.10 - ALCOHOL ABUSE, UNCOMPLICATED SNOMED Code(s): 68480346 (4) Melena Current Visit: Yes Status: Acute Code(s): K92.1 - MELENA SNOMED Code(s): 6537548 (5) Duodenal ulcer Current Visit: Yes Status: Acute Code(s): K26.9 - DUODENAL ULCER, UNSP ACUTE OR CHRONIC, W/O HEMOR OR PERF SNOMED Code(s): 61486227 Plan: 1. Continue symptomatic and supportive care 2. Avoid NSAIDs 3. IV Protonix 40 mg twice daily, discharged home on omeprazole 40 mg twice daily 5. Daily CBC, transfuse for hemoglobin less than 7 6. Advance to full liquid diet, then advance as tolerated 7. Recommend alcohol abstinence, this was discussed with the patient. 8. Discussed with patient avoidance of NSAIDs 9. Recommend outpatient follow-up with gastroenterology and patient will need repeat upper endoscopy to evaluate healing of ulcer, this was discussed with the patient who verbalized understanding. 10. Rest of medical management per primary medical team Thank you for this consultation, we will continue to follow. Possible discharge later today or tomorrow. Dr. Last Tang I agree with the dictator's note, documented as a scribe by Clau AVELAR .
[2025-02-08 11:55] LABS: African American GFR (CKD) >90 (>60 ml/min/1.73 sqM); Anion Gap 5 mmol/L; Blood Urea Nitrogen 11 mg/dL (9-20); Calcium 8.6 mg/dL (8.4-10.2); Carbon Dioxide 25 mmol/L (22-30); Chloride 99 mmol/L (98-107); Glucose 98 mg/dL (74-99); Non-African American GFR(CKD) >90 (>60 ml/min/1.73 sqM); Potassium 3.9 mmol/L (3.5-5.1); Sodium 129 mmol/L (137-145)
[2025-02-09 07:41] LABS: Basophils # (A) 0.06 10*3/uL (0.00-0.10); Basophils % (A) 0.8 %; Eosinophils # (A) 0.12 10*3/uL (0.04-0.35); Eosinophils % (A) 1.5 %; HCT 25.9 % (39.6-50.0); HGB 8.1 g/dL (13.0-17.0); Lymphocytes # (A) 1.88 10*3/uL (0.90-5.00); Lymphocytes % (A) 23.6 %; MCH 25.6 pg (27.0-32.0); MCHC 31.3 g/dL (32.0-37.0); Monocytes # (A) 0.96 10*3/uL (0.20-1.00); Neutrophils # (A) 4.93 10*3/uL (1.80-7.70); Neutrophils % (A) 61.7 %; Platelet Count 333 10*3/uL (140-440); RBC 3.16 10*6/uL (4.40-5.60); RDW 19.3 % (11.5-14.5); WBC 7.98 10*3/uL (4.50-10.00)
[2025-02-09 07:51] VITALS: BP 114/75; PULSE 76; RESP 16; TEMP 97.8
[2025-02-09 07:53] LABS: African American GFR (CKD) >90 (>60 ml/min/1.73 sqM); Anion Gap 4 mmol/L; Blood Urea Nitrogen 12 mg/dL (9-20); Calcium 9.1 mg/dL (8.4-10.2); Carbon Dioxide 28 mmol/L (22-30); Chloride 99 mmol/L (98-107); Glucose 96 mg/dL (74-99); Magnesium 2.1 mg/dL (1.6-2.3); Non-African American GFR(CKD) >90 (>60 ml/min/1.73 sqM); Potassium 4.5 mmol/L (3.5-5.1); Sodium 131 mmol/L (137-145)
--- NOTE | 2025-02-09 14:33 | P.PN ---
Subjective Progress Note Date: 02/09/25 Principal diagnosis: Upper GI bleed, duodenal ulcer This a pleasant 45-year-old male with a past medical history of alcohol dependence who drinks 6-10 beers a day for multiple years, upper GI bleed with history of ulcer about 6 years ago, and tobacco use [facility] for complaints of coffee-ground emesis. Patient states that Thursday he had emesis that was bright red it was followed by coffee-ground emesis. He went to the hospital for further evaluation. He also states that he has been having black stool since Thursday. Has a history of ulcer about 6 years ago had upper endoscopy at an outside facility. He denies any known history of liver disease. Denies any known history of esophageal varices. He was noted to be anemic at the outside facility. He had a CT of the abdomen pelvis without any acute findings. He denies any associated abdominal pain. He has had no further vomiting since he is come here. He is currently NPO. He denies any previous colonoscopy. On admission hemoglobin was 7.0 he was given 1 unit of blood. Today's labs WBC 7.4 hemoglobin 7.4 hematocrit 23 platelet count 263,000 INR was 1.1 sodium 132 potassium 4.2 BUN 32 creatinine 0.6 total bilirubin 0.8 AST 18 ALT 11 alkaline phosphatase 31 He denies being on any anticoagulation, he does use Excedrin and NSAIDs. He takes at least 2 Excedrin daily. Reports taking Prilosec at home. 02/08/2025 Patient is seen and examined today as a follow-up. Yesterday he underwent upper endoscopy with findings of 1 cm linear duodenal ulcer along the duodenal sweep with active bleeding status post Endo Clip placement with good hemostasis. 5 mm nonbleeding antral ulcer and small hiatal hernia. Patient states he has no abdominal pain nausea or vomiting. Denies any recent bowel movements, no rectal bleeding. He has had no further hematemesis or coffee-ground emesis. Tolerating clear liquid diet. Hemoglobin is 7.6. He is status post 2 units of blood during this admission. 02/09/2025 Patient seen and examined today as a follow-up. He is standing up at the bedside. He states he is ready to go home. Denies any abdominal pain, nausea or vomiting. No hematemesis or coffee-ground emesis and no blood in his stool. Hemoglobin stable at 8.1 up from 7.6. Objective - Vital Signs Vital signs: Vital Signs Temp 97.8 F 02/09/25 07:50 Pulse 76 02/09/25 07:50 Resp 16 02/09/25 07:50 BP 114/75 02/09/25 07:50 Pulse Ox 96 02/09/25 07:50 FiO2 Intake & Output 02/08/25 02/09/25 02/09/25 18:59 06:59 18:59 Intake Total 240 Balance 240 Weight 67.8 kg Intake: Oral 240 Other: Voiding Method Toilet # Voids 1 2 - Exam General appearance: The patient is alert, oriented, appears in no acute distress. HET: Head is normocephalic and atraumatic. Conjunctiva pink. Sclera anicteric. Neck: Supple without lymphadenopathy. Abdomen: Soft, nontender, nondistended. Extremities: Normal skin color and turgor. No pedal edema Skin: No rashes, no jaundice Neurological: No focal deficits. Alert and oriented. - Labs CBC & Chem 7: 02/09/25 07:04 02/09/25 07:04 Labs: Abnormal Lab Results - Last 24 Hours (Table) 02/08/25 02/09/25 02/09/25 Range/Units 11:29 07:04 07:04 RBC 3.16 L (4.40-5.60) 10*6/uL Hgb 8.1 L (13.0-17.0) g/dL Hct 25.9 L (39.6-50.0) % MCH 25.6 L (27.0-32.0) pg MCHC 31.3 L (32.0-37.0) g/dL MPV 9.0 L (9.5-12.2) fL Sodium 129 L 131 L (137-145) mmol/L Creatinine 0.58 L (0.66-1.25) mg/dL Assessment and Plan (1) Gastrointestinal bleed Narrative/Plan: 45-year-old male with daily alcohol use disorder was transferred for concerns for upper GI bleed with hematemesis as well as coffee-ground emesis and melena. Patient reports history of an ulcer and previous upper GI bleed about 6 years ago. Patient was noted to have microcytic anemia on admission. Was given 1 unit of blood. Has elevated BUN which can also be seen in setting of upper GI bleed. Patient had undergone upper endoscopy with findings of duodenal ulcer with active bleeding status post Endo Clip with good hemostasis as well as a small nonbleeding antral ulcer. Recommendation for alcohol abstinence, avoid NSAIDs and recommend PPI for next 3 months. Patient does not tolerate Protonix secondary to migraines. Recommend omeprazole 40 mg twice daily. Patient will need outpatient follow-up with repeat upper endoscopy to evaluate healing of ulcer. Patient can be seen in [place]. Status: Acute Code(s): K92.2 - GASTROINTESTINAL HEMORRHAGE, UNSPECIFIED SNOMED Code(s): 53703148 (2) Coffee ground emesis Status: Acute Code(s): K92.0 - HEMATEMESIS SNOMED Code(s): 23804043 (3) ETOH abuse Status: Acute Code(s): F10.10 - ALCOHOL ABUSE, UNCOMPLICATED SNOMED Code(s): 88917430 (4) Melena Status: Acute Code(s): K92.1 - MELENA SNOMED Code(s): 8365716 (5) Duodenal ulcer Status: Acute Code(s): K26.9 - DUODENAL ULCER, UNSP ACUTE OR CHRONIC, W/O HEMOR OR PERF SNOMED Code(s): 89560847 Plan: 1. Continue symptomatic and supportive care 2. Avoid NSAIDs 3. IV Protonix 40 mg twice daily, discharged home on omeprazole 40 mg twice daily 5. Advance to regular diet 6. Recommend alcohol abstinence, this was discussed with the patient. 7. Discussed with patient avoidance of NSAIDs 8. Recommend outpatient follow-up with gastroenterology and patient will need repeat upper endoscopy to evaluate healing of ulcer, this was discussed with the patient who verbalized understanding. Thank you for this consultation, patient is cleared from gastroenterology for discharge. Dr. Last Tang I agree with the dictator's note, documented as a scribe by Clau Maki.
--- NOTE | 2025-02-09 15:18 | P.DS ---
Providers Date of admission: 02/06/25 23:29 Discharge Diagnosis: Acute GI bleed, secondary to bleeding duodenal ulcer Hematemesis Melena Euvolemic hyponatremia Alcohol use disorder Tobacco use disorder: Nicotine patch daily Opioid use disorder: Suboxone 8-2 mg 1 each SL HS Hospital Course: Patient is a 45-year-old male with history of GI bleed and stomach ulcer, alcohol use disorder, tobacco dependence who presents with coffee-ground emesis and melena. Patient is a transfer from [facility]. They lab significant for hemoglobin was 7.2, BUN 28. He was given 1 unit packed red blood cells and Protonix 40 mg IV twice. Also CT abdomen and pelvis with and without contrast completed with findings of no evidence for accumulation of contrast within the bowel lumen, no evidence of acute GI hemorrhage, nonobstructive bowel gas pattern without free air, no free fluid. Patient states Thursday he began having black stool with occasional red streaks. He also feels like he has been having more frequent bowel movements during this time. He has been having near syncope episodes during this time. Today, patient attests to dark brown emesis and began to become short of breath and dizzy. He admits to using Excedrin 2 to 4 pills daily. He denies iron or Pepto-Bismol use. He does state he had a similar occurrence 6 years ago for which she was admitted for 1 week, where EGD and colonoscopy were performed which were negative for acute bleeds. He also attests to a greater than 20-year history of alcohol use, drinking a sixpack of beer daily. Last drink was Thursday. He denies any withdrawal symptoms at this time. At this time patient continues to have diarrhea, however nausea and vomiting have subsided. He states he uses Suboxone for neck pain. He is denying fever, chills, abdominal pain. He has no other complaints at this time. ER FINDINGS: Labs significant for hemoglobin 7.0, sodium 128, potassium 5.2, bicarb 20, lactic acid 1.0, BUN 42, Cr 0.56, ALP 21, lipase 106 ED documents reviewed. Patient received 1 unit of PRBC in ED for Hgb < 7.0. Patient was admitted for further evaluation for acute GI bleed with GI consulted. Patient was made NPO. Patient's hemoglobin dropped to <7.0 and received an additional unit of PRBC. Patient was seen and evaluated by GI and underwent EGD. Status post EGD per procedure note, patient had 1 cm linear duodenal ulcer along with the duodenal sweep with active bleeding status post Endo Clip placement with good hemostasis, 5 mm nonbleeding antral ulcer, small hiatal hernia. Diet was advanced to clear liquids. Patient was cleared by GI.. He will be discharged with PPI for the next 3 months. Recommended alcohol abstinence for pain and to avoid NSAIDs to the patient. He is hemodynamically stable follow-up with GI and his PCP. Patient to be discharged home today with home self-care. Patient seen and examined at bedside. No events overnight. No acute complaints. Vital signs reviewed and stable. Physical examination: Vital signs reviewed General: nontoxic, no distress, appears at stated age Derm: warm, dry, intact Head: atraumatic, normocephalic, symmetric Eyes: EOMI, anicteric sclera Mouth: no lip lesion, mucus membranes moist Cardiovascular: S1 S2 reg, no murmur, rubs, or gallops Lungs: CTA bilateral, no rhonchi, no rales, no accessory muscle use Abdominal: soft, non-tender to palpataion, no appreciable organomegaly Extremities: no gross muscle atrophy, no edema, no contractures Neuro: Alert, Oriented, CNII-XII grossly intact, gait normal Psych: well appearing, appropriate affect A total of greater than 30 minutes of time were spent preparing this complex discharge summary. Patient was discharge on February 09, 2025 at 10:11 AM. Jeff Fontaine MD PGY-1 IM Dictation was produced using [employer] dictation software. please excuse any grammatical, word or spelling errors. I have seen and evaluated the patient today. Discussed with the resident and agree with the residents finding and plan as documented in the resident's note. Changes highlighted in blue font. Expected date of discharge: 02/09/25 Attending physician: Zeny Pantoja MD Consults: 02/06/25 23:28 Consult Physician Stat Consulting Provider: Vanessa Tang Consult Reason/Comments: Gastrointestinal hemorrhage Do you want consulting provider notified?: Already Contacted Primary care physician: Stated None Patient Condition at Discharge: Fair Plan - Discharge Summary New Discharge Prescriptions: New Omeprazole [PriLOSEC] 40 mg PO BID 90 Days #180 cap Thiamine [Vitamin B-1] 100 mg PO DAILY #30 tab Continue amLODIPine [Norvasc] 10 mg PO DAILY Buprenorphine HCl/Naloxone HCl [Suboxone 8 mg-2 mg Sl Film] 0.5 film SL BID Discontinued Omeprazole [PriLOSEC] 20 mg PO DAILY Discharge Medication List Buprenorphine HCl/Naloxone HCl [Suboxone 8 mg-2 mg Sl Film] 0.5 film SL BID 02/07/25 [History] amLODIPine [Norvasc] 10 mg PO DAILY 02/07/25 [History] Omeprazole [PriLOSEC] 40 mg PO BID 90 Days #180 cap 02/08/25 [Rx] Thiamine [Vitamin B-1] 100 mg PO DAILY #30 tab 02/09/25 [Rx] Follow up Appointment(s)/Referral(s): Vanessa Tang MD [STAFF PHYSICIAN] - 4 Weeks (Unable to get through. Please call to schedule appointment) None,Stated [Primary Care Provider] - 1-2 days (Please follow up with a PCP) Patient Instructions/Handouts: Peptic Ulcer (DC), Gastrointestinal Bleeding (ED) Activity/Diet/Wound Care/Special Instructions: Please follow up with PCP and GI. Discharge Disposition: HOME SELF-CARE
--- NOTE | 2025-02-09 17:01 | CDI ---
Date: 02/09/2025 From: Court [email or web address] Email: [email or web address] Admit Date: 02/06/2025 11:29:00 PM Patient Name: Jayesh Del Valle Visit Number: [id number] Discharge Date: 02/09/2025 10:40:00 AM ATTENTION: The Clinical Documentation Specialists (CDI) and [facility] Coding Staff appreciate your assistance in clarifying documentation. Please respond to the clarification below the line at the bottom and electronically sign. The CDI & [facility] Coding staff will review the response and follow-up if needed. Please note: Queries are made part of the Legal Health Record. If you have any questions, please contact the author of this message via ITS. Dr. Hero Conde, Microcytic anemia is documented in the GI Progress Note on 02/09/2025. Based on this information and the findings below, is there further specificity and/or an additional diagnosis that is clinically appropriate for this patient? Patient history/risk factors: 45-year-old male presented to [facility] ED as a transfer from another facility for further evaluation due to reported black stool with occasional red streaks and coffee-ground emesis. PMH: Stomach ulcer, tobacco dependence, alcohol use disorder Clinical Indicators: Documentation Location: Electronic Medical Record Procedure Note (02/07/2025): o 1 cm linear duodenal ulcer along the duodenal sweep with active bleeding status post Endo-Clip placement with good hemostasis o 5 mm nonbleeding antral ulcer Internal Medicine Progress Note (02/08/2025): o Acute GI bleed secondary to duodenal ulcer o Melena o Hematemesis Lab Trends: 02/06/2025 02/07/2025 02/08/2025 02/09/2025 Hemoglobin 7.0 6.9 7.6 8.1 Hematocrit 22.7% 21.9% 23.5% 25.9% Treatment: IV Transfusion: 2 units of Packed Red Blood Cells Protonix 40mg IVP BID GI Consultation EGD with Endo-Clip Placement Is there an additional diagnosis that is clinically appropriate for this patient? [ ] Acute blood loss anemia superimposed on underlying chronic iron deficiency anemia [ x ] Acute on chronic iron deficiency anemia due to blood loss [ ] No additional diagnosis/Not clinically significant [ ] Unable to determine [ ] Other, please specify MTDD
== END 2025-02-09 10:40 | disposition home or self-care (01) | DRG 378 ==
LOC: EC 20:09 → 3SCARD 23:29
PROVIDERS: ADMIT Internal Medicine; ATTEND Internal Medicine
PROC: 0DB78ZX Excision of Stomach, Pylorus, Via Natural or Artificial Opening Endoscopic, Diagnostic (ICD-10-PCS; principal; 2025-02-07 07:30)
PROC: 0W3P8ZZ Control Bleeding in Gastrointestinal Tract, Via Natural or Artificial Opening Endoscopic (ICD-10-PCS; principal; 2025-02-07 07:30)
PROC: 30233N1 Transfusion of Nonautologous Red Blood Cells into Peripheral Vein, Percutaneous Approach (ICD-10-PCS; 2025-02-07 07:30)
DX: K26.4 Chronic or unspecified duodenal ulcer with hemorrhage (principal); D62 Acute posthemorrhagic anemia; E87.1 Hypo-osmolality and hyponatremia; F10.20 Alcohol dependence, uncomplicated; F11.10 Opioid abuse, uncomplicated; I10 Essential (primary) hypertension; D50.9 Iron deficiency anemia, unspecified; K25.9 Gastric ulcer, unspecified as acute or chronic, without hemorrhage or perforation; R55 Syncope and collapse; T39.395A Adverse effect of other nonsteroidal anti-inflammatory drugs [NSAID], initial encounter; G43.909 Migraine, unspecified, not intractable, without status migrainosus; E87.5 Hyperkalemia; E86.1 Hypovolemia; F17.200 Nicotine dependence, unspecified, uncomplicated; K44.9 Diaphragmatic hernia without obstruction or gangrene; Z79.899 Other long term (current) drug therapy; Z79.1 Long term (current) use of non-steroidal anti-inflammatories (NSAID); Z87.11 Personal history of peptic ulcer disease
CPT/HCPCS: 36415; 36430; 43239; 43255; 80048; 80053; 82272; 83605; 83690; 83735; 85025; 85027; 85610; 85730; 86850; 86900; 86901; 86920; 88305; 96361; 96374; 96375; 96376; 99285